=== PATIENT | male | born 1945 | race Caucasian/White ===

== ENCOUNTER 2020-10-22 10:15 | Outpatient (RCR) | payer MEDICARE, BC, SELFPAY ==
[2020-10-22] MEDS: COVID-19 VACC, MRNA(PFIZER)/PF 30 MCG/0.3 ML SYRINGE IM (17:56)
[2020-11-12] MEDS: COVID-19 VACC, MRNA(PFIZER)/PF 30 MCG/0.3 ML SYRINGE IM (12:14)
== END 2021-01-21 23:59 ==
LOC: IMMUN 10:15
PROVIDERS: PCP Family Medicine; Visit Provider Family Medicine
DX: Z23 Encounter for immunization (principal)
CPT/HCPCS: 0001A; 0002A; 91300